=== PATIENT | male | born 1950 | race Caucasian/White ===

== ENCOUNTER 2017-06-08 13:20 | Emergency (ER) | payer OTHER ==
[~2017-06-08] VITALS: Ht 172.7 cm; Wt 104.3 kg
[2017-06-08 13:40] VITALS: BP_SYST 155
[2017-06-08 15:11] VITALS: BP_SYST 146
== END 2017-06-08 15:11 | disposition home or self-care (01) ==
LOC: SED 13:20
DX: H61.22 Impacted cerumen, left ear (principal); Z88.8 Allergy status to other drugs, medicaments and biological substances
CPT/HCPCS: 99283